=== PATIENT | male | born 1980 | race African-American/Black ===

== ENCOUNTER 2022-11-22 04:55 | Emergency (ER) | payer MEDICAID, OTHER ==
[~2022-11-22] VITALS: Ht 177.8 cm; Wt 69.0 kg
[2022-11-22 04:59] VITALS: O2SAT 98
[2022-11-22] MEDS ORDERED: ACETAMINOPHEN 325MG TABLET PO ONE (05:30)
[2022-11-22] MEDS ORDERED: SODIUM CHLORIDE 0.9% 1,000 ML IV ONE (05:30)
[2022-11-22 06:42] LABS: BASOPHILS % 0.3 % (0.0-2.0); EOSINOPHILS % 1.8 % (0.0-5.0); HEMATOCRIT. 34.3 % (42.0-52.0); HEMOGLOBIN. 11.6 g/dL (14.0-18.0); LYMPHOCYTES % 22.1 % (20.0-50.0); MEAN CORPUSCULAR HEMOGLOBIN 31.9 pg (28.0-32.0); MEAN CORPUSCULAR VOLUME 94.2 fL (80.0-94.0); MEAN PLATELET VOLUME 8.2 fl (7.4-10.4); MONOCYTES % 13.4 % (2.0-8.0); NEUTROPHILS % 62.4 % (40.0-76.0); PLATELET 252 x1000/uL (130-400); RED BLOOD CELL COUNT 3.65 mill/uL (4.7-6.1)
[2022-11-22 06:49] LABS: CHLORIDE 105 mEq/L (98-107)
[2022-11-22 07:00] LABS: ETHANOL BLOOD < 10 mg/dL (-10)
[2022-11-22 08:00] VITALS: BP 113/65; PULSE 65; RESP 16; TEMP 97.9
== END 2022-11-22 10:44 | disposition home or self-care (01) ==
LOC: ER 05:30 → CANBEDREQ 10:20 → ER 10:44
DX: R06.00 Dyspnea, unspecified (principal); F17.200 Nicotine dependence, unspecified, uncomplicated; F14.10 Cocaine abuse, uncomplicated; F12.10 Cannabis abuse, uncomplicated; F15.10 Other stimulant abuse, uncomplicated; Z00.00 Encounter for general adult medical examination without abnormal findings; Z53.29 Procedure and treatment not carried out because of patient's decision for other reasons
CPT/HCPCS: 80053; 80307; 80329; 80320; 83880; 83690; 85025; 84484; 36415; 71045; 93005; 96360; 99285; J7030; Z7610; G0480